=== PATIENT | male | born 1940 | race Caucasian/White ===

== ENCOUNTER 2017-04-21 00:11 | Day surgery (SDC) | payer MEDICARE, OTHER ==
[~2017-04-21] VITALS: Ht 189.2 cm; Wt 109.1 kg
[2017-04-21] VITALS (16 sets, daily range): BP systolic 116–154; BP diastolic 67–106; PULSE 87–110; RESP 12–20; O2SAT 94–99
[~2017-04-21 00:11] MED LIST: ASCO100089 PO; CHOL10008 PO; CYAN10008 PO; FURO40TA4 PO; LISI-571 PO; METO25TA99 PO; OMEP20CA11 PO; RIVA20TA PO; SPIR25TA3 PO; TAMS0.4C98 PO
[2017-04-21 07:26] LABS: BASOPHILS % (AUTO) 0.4 % (0-3); EOSINOPHILS % (AUTO) 28.7 % (0-5); MONOCYTES % (AUTO) 7.6 % (4-12); Mean Corpuscular Hemoglobin 27.9 pg (27.0-35.0); Mean Corpuscular Volume 82.3 fL (81-100); NEUTROPHILS % (AUTO) 46.6 % (40-74); Platelet Count 178 bil/L (150-400)
[2017-04-21 07:44] LABS: INR 1.06 ratio
[2017-04-21] MEDS ORDERED: Heparin 1,000 Unit/mL 10 mL Inj ONE (07:46)
[2017-04-21] MEDS ORDERED: Heparin 1,000 Units/500 mL NS Premix IV ONE (07:46)
[2017-04-21] MEDS ORDERED: 0.9% Sodium Chloride 50 ML ONE (07:46)
[2017-04-21] MEDS ORDERED: Heparin 10,000 Unit/1,000 mL NS Premix IV ONE (07:47)
[2017-04-21] MEDS ORDERED: Nitroglycerin 50,000 mcg/250 mL D5W Premix IV ONE (07:47)
--- NOTE | 2017-04-21 07:52 | NUR ---
Admit POLLO Admitted to [facility] about 0650. VSS. Denies pain. Tele Afib with PVC's. IV's started and labs sent. Procedure and recovery reviewed and verbalizes understanding. Continue to monitor. Awaiting laboratory specialist. See EMR for further info and assessment.
[2017-04-21] MEDS ORDERED: fentaNYL-PF 50 mCg/mL 2 mL Inj ONE ×2 (08:54→11:23)
[2017-04-21] MEDS ORDERED: Atropine 1 mg/10 mL (Code) Syringe ONE (09:16)
--- NOTE | 2017-04-21 10:36 | PCM.CVCATH ---
Cardiac Cath Report Date of Service April 21, 2017 Primary Indication Systolic heart failure Procedure coronary angiography, left heart cath, and right heart cath Vascular Access Right radial artery using 5 Fr slender sheath, closure with TR band. Right internal jugular vein using 6Fr sheath, closure with manual hold. Diagnostic Catheters Left main: [place] 4.5, 5 Fr caused poor contrast opacification. JL4 guide 5 Fr was used better visualization. RCA: [place] 4.5, 5 Fr Procedure Details Coronary angiography details: The patient was brought to the cardiac catheterization lab in the fasting state. Patient was laid supine on the cardiac catheterization table and the right forearm and right neck were prepped and draped in the usual sterile fashion. One percent Xylocaine was infiltrated over the right internal jugular vein. Vascular access was then achieved under ultrasound guidance. [place] was completed through the sheath. One percent Xylocaine was infiltrated over the right radial artery. Guide wire was used to advance the catheter through the sheath and up into aortic sinuses and then into the LV. While taking LV pressures, patient developed complete heart block for about 5-10 seconds that resolved with cough and removal of the catheter from the LV. With the bentson wire, the catheter actually went to the RENZO artery initially with no complications. After obtaining RCA pictures with tiger catheter, left coronary artery was engaged. Due to the large left main artery, the tiger catheter was switched to JL4 guide and left coronary artery pictures were reobtained. Dr. Daniels from interventional cardiology took over the case to do FFR and probable PCI of the LAD. Medications/Fluoro Time Medications administered and fluoroscopy: see PCI report Findings 1) Coronary angiography: Right dominance a. Left main is very large caliber vessel with no angiographically significant disease. b. LAD is normal caliber vessel giving rise to very high first diagonal and first septal. The proximal LAD has 80% stenosis just past the first septal and rest of the LAD has mild luminal irregularities. The first diagonal artery has ostial 50-60% stenosis. The second diagonal has mild luminal irregularities. c. LCx is normal caliber artery giving rise to two obtuse marginal (OM) arteries. The LCx and the OM branches have mild luminal irregularities. d. RCA is normal caliber vessel with mild ectasis proximally and mild luminal irregularities diffusely and up to 40% stenosis distally. 2) Left Heart catheterization: a. LVEDP is normal at 15 mmHg. b. No significant transaortic gradient on catheter pull-back. 3) Right heart cath: * RA Mean Pressure 7 mmHg * RV Pressure 50/2 (RVEDP 6 mmHg) * PA Pressure 56/26 (36 mmHg) * PCWP not obtained as LVEDP was done * Martha Cardiac Output 4.3 L/min / Martha Cardiac Index 1.82 L/min/m2 Complications There were no periprocedural complications identified. Summary 1) Coronary angiography: Obstructive proximal LAD disease. 2) Right heart cath: Mild pulmonary hypertension with mild low output heart failure. Normal right and left sided filling pressures. Recommendations Refer to interventional cardiology (Dr. Daniels) for FFR of the LAD and probable PCI of the LAD. copies to: Nain Carbajal Bhrigu R MD April 21, 2017 10:36 Pauline Moyer MD April 21, 2017 10:36
--- NOTE | 2017-04-21 11:40 | NUR ---
Received To supervisor labor gang about 0840. Returned about 1115. VSS. Tele Afib/flutter with PVC's. Denies pain. Right wrist and Right IJ without bleeding or hematoma. Activity restrictions reviewed. States not hungry but taking po fluids well. Voiding per urinal. IVF infusing per order. Continue to monitor.
--- NOTE | 2017-04-21 11:50 | DI95 ---
[address] [address] INTERVENTIONAL CARDIAC CATHETERIZATION PATIENT: KATHY GALEAS : 1940 MR#: [id number] ADMIT: 04/21/2017 JOB ID: [id number] DATE OF PROCEDURE: 04/21/2017 PATIENT PROFILE: The patient is a 77-year-old male who has ischemic cardiomyopathy. He was found to have moderate to severe proximal left anterior descending artery stenosis. PROCEDURES: 1. Fractional flow reserve of the proximal left anterior descending. 2. Balloon angioplasty and stenting to the proximal left anterior descending. VASCULAR CLOSURE DEVICE: None. COMPLICATIONS: None. METHOD: Following diagnostic coronary angiogram performed by Dr. Winslow, an informed consent was obtained for percutaneous coronary intervention. A 5-English JL4 guide was already in place. A flow wire was directed into the left anterior descending artery. Adenosine was given infusion IV. FFR was measured at 0.68. Additional heparin was given in order to maintain ACT above 300. The proximal left anterior descending artery lesion was pre-dilated with a 2.5 x 15 mm balloon. A Resolute Integrity 2.5 x 12 mm stent was placed inside the proximal left anterior descending artery lesion and deployed at 20 atmospheres for 25 seconds. Final angiogram was obtained. Following sheath removal, hemostasis was achieved by using TR band. The patient tolerated the procedure well. He was transferred to [facility] in good condition. TOTAL CONTRAST USED: 165 cc FLUOROSCOPY TIME: 18.5 minutes. RESULTS: 1. FFR of the proximal left anterior descending artery is 0.68, which indicates hemodynamically significant stenosis. 2. Successful balloon angioplasty and stenting to the tight culprit proximal left anterior descending artery lesion by deploying one drug eluting stent to achieve an excellent angiographic result with YULIYA-3 flow distally. [facility]
--- NOTE | 2017-04-21 14:16 | NUR ---
Recovery/Transfer of care Recovery progressing without complication. Decreasing air in TR band per order without bleeding or hematoma. Report called to Magali Sharp on PCC. and care transferred to Henrietta Box RN in [facility] for remainder of recovery.
--- NOTE | 2017-04-21 15:15 | NUR ---
Pt complaining of anxiety/SOB MD made aware, VSS on RA, pt denies chest pain, ECG taken no changes noted. Pt relaxed and was breathing effortlessly in room post nitrostat administration. Dr. Daniels came and evaluated patient and deemed him stable for transfer to [facility]. TR band has been removed, site soft non tender, no signs of bleeding.
[2017-04-21] MEDS ORDERED: Atropine 1 mg/10 mL (Code) Syringe IVPUSH PRN (15:50)
[2017-04-21] MEDS ORDERED: 0.9% Sodium Chloride 250 ML BOLUS IV PRN (15:50)
[2017-04-21] MEDS ORDERED: Ondansetron 2 mg/mL 2 mL Inj IVPUSH PRN (15:50)
[2017-04-21] MEDS ORDERED: Sodium Chloride LOK Flush 10 mL Syringe IVFLUSH PRN (15:50)
[2017-04-21] MEDS ORDERED: 0.9% Sodium Chloride 1,000 ML IV ONE (15:50)
--- NOTE | 2017-04-21 16:07 | NUR ---
Admit to [facility] Pt arrived at aprox 1545 from [facility]. Pt denies pain/anxiety at this time. Per lunchroom monitor pt in Afib 1-teens, BP stable. Denies SOB/dyspnea, on 1.5L NC for comfort, SpO2 98%. R wrist puncture site c/d/i, +radial pulse. Pt endorses baseline numbness/tingling to bilateral feet. Per family report, pt has significant exertional dyspnea at baseline. Educated on minimal use to RUE, sling at bedside if needed. Educated cfo controller light use.
[2017-04-21] MEDS: MeTOProlol XL 25 mg ER24 Tablet PO SCH (16:26)
[2017-04-22 00:03] VITALS: BP 141/86; PULSE 102; RESP 16; O2SAT 98
[2017-04-22 04:16] VITALS: BP 141/69; PULSE 67; RESP 16; O2SAT 99
--- NOTE | 2017-04-22 04:25 | NUR ---
SLEEP Pt slept upright in chair for comfort and anxiety. Pt had an uneventful night, VSS, no pain, a-fib 80-100, 1L NC for comfort, right wrist CDI from radial approach for cath procedure.
[2017-04-22 04:46] LABS: Mean Corpuscular Hemoglobin 28.2 pg (27.0-35.0); Mean Corpuscular Volume 83.3 fL (81-100)
[2017-04-22 05:25] VITALS: PULSE 72
[2017-04-22] MEDS ORDERED: Pantoprazole 20 mg ER24 Tablet PO SCH (06:30)
[2017-04-22 08:00] VITALS: PULSE 76
[2017-04-22] MEDS ORDERED: Ascorbic Acid 500 mg Tablet PO SCH (08:30)
[2017-04-22] MEDS ORDERED: MeTOProlol XL 25 mg ER24 Tablet PO SCH (08:30)
[2017-04-22 08:38] VITALS: BP 142/72; PULSE 67; RESP 16; O2SAT 97
[2017-04-22] MEDS: MeTOProlol XL 25 mg ER24 Tablet PO SCH (08:45)
[2017-04-22] MEDS ORDERED: APIX5TAB PO (10:48)
[2017-04-22] MEDS ORDERED: ASPI81TA3 PO (10:48)
[2017-04-22] MEDS ORDERED: CLOP75TA28 PO (10:48)
[2017-04-22] MEDS ORDERED: ATRV10T PO (10:48)
--- NOTE | 2017-04-22 10:50 | PCM.DIMED ---
Discharge Instructions Date of Service April 22, 2017 Dates of Hospitalization 04/21/2017 Discharge Diagnosis Discharge Diagnosis 04/22/2017 Diet Discharge Diet: Heart Healthy Activity Discharge Activity: Other (do not lift more than 5 pounds for one week) Patient Instructions Follow-up with PCP in: Other (05/27/2017 at 11AM doctor time. Arrive 15 minutes early.) Provider: Pauline Moyer MD, Bhrigu R MD April 22, 2017 10:50
--- NOTE | 2017-04-22 13:59 | NUR ---
Meds Pt had two separate orders for 25mg metoprolol XL this am, clarified with district plant engineer, instructed to give only one of the scheduled doses. Pt started on apixaban PO today by district plant engineer, confirmed that Pt would be changed from xarelto to apixaban, Pt received dose prior to discharge.
== END 2017-04-22 13:10 | disposition home or self-care (01) ==
LOC: SOUO 00:11 → PCC 15:41 → SOUO 04-22 13:10
PROVIDERS: ATTEND Internal Medicine Cardiovascular Disease
DX: I25.10 Atherosclerotic heart disease of native coronary artery without angina pectoris (principal); I27.2 Other secondary pulmonary hypertension; I48.1 Persistent atrial fibrillation; I25.5 Ischemic cardiomyopathy; I10 Essential (primary) hypertension; I35.0 Nonrheumatic aortic (valve) stenosis; Z86.718 Personal history of other venous thrombosis and embolism; I73.9 Peripheral vascular disease, unspecified; Z79.01 Long term (current) use of anticoagulants; I50.9 Heart failure, unspecified
CPT/HCPCS: 36415; 76937; 80048; 85025; 85027; 85610; 85730; 93005; 93460; 93571; 99152; 99153; C1725; C1729; C1769; C1874; C1887; C1894; C9600; J1644; J2250; J3010; Q9967